=== PATIENT | female | born 1980 | race Caucasian/White ===

== ENCOUNTER 2022-09-18 19:38 | Emergency (ER) | payer OTHER ==
[2022-09-18] MEDS ORDERED: NS IV 1000 ML 1,000 ML IV STA (19:57)
[2022-09-18] MEDS ORDERED: KETOROLAC 30 MG/ML VIAL IVP STA (19:57)
--- NOTE | 2022-09-18 20:05 | ED Back Pain ---
General Chief Complaint: Back Problems Stated Complaint: LOWER RT BACK PAIN Source of Information: Patient History of Present Illness Date Seen by Provider: Sep 18, 2022 Time Seen by Provider: 19:41 Initial Comments 42-year-old female presenting with complaints of right flank and lower back pain x 4 days. She was seen in [place] at a urgent care and they diagnosed her with yeast infection and UTI. she was started on an antibiotic and states it is turquoise and purple but does not know what it is. From reviewing her external medicine history it appears that she was prescribed Macrobid. She presents tonight to the ED because several family members told her that it sounded like a kidney stone when she complained of her pain. She states that she has never had kidney stones that she is aware of but she has had urinary tract and kidney infections previously. She has tried doing lidocaine patches for the pain with little to no improvement. The pain has been constant and she rates it at 8 or 9. She has not tried anything [id number] because she says that it never works so she did not bother. Location: Other (right low back and flank) Timing/Duration: 4-5 Days Severity: Severe Pain/Injury Location: Back (right low back and flank) Method of Injury: Unknown Modifying Factors: Worse With Movement Associated Symptoms: No muscle spasms, No fever, No weakness, No numbness in legs/feet, No tingling in legs/feet, No sensory/motor loss; lower back pain; No loss of bladder control, No loss of bowel control Allergies and Home Medications Allergies Coded Allergies: amoxicillin (Verified Allergy, Severe, 09/18/22) Yeast infection and diarrhea morphine (Verified Allergy, Intermediate, Hives, 09/18/22) Patient Home Medication List Home Medication List Reviewed: Yes Cyclobenzaprine HCl (Cyclobenzaprine HCl) 10 Mg Tablet, 10 MG PO Q8H PRN for SPASMS Prescribed by: BERTRAND FRANCIS on 09/18/222150 Oxycodone HCl/Acetaminophen (Oxycodone-Acetaminophen 5-325) 5 Mg-325 Mg Tablet, 1 EACH PO Q6H PRN for PAIN-SEVERE (8-10) Prescribed by: BERTRAND FRANCIS on 09/18/222151 Review of Systems Constitutional: No chills, No fever EENTM: no symptoms reported Respiratory: no symptoms reported Cardiovascular: no symptoms reported Gastrointestinal: see HPI Genitourinary: see HPI Musculoskeletal: see HPI Skin: No change in color, No rash Psychiatric/Neurological: Denies Headache Past [id number] Hx Patient Social History Tobacco Use?: No Use of E-Cig and/or Vaping dev: No Substance use?: No Alcohol Use?: No Pt feels they are or have been: No Past Medical History Surgery/Hospitalization HX: recurrent UTI, Migraine Headaches, Hypothyroid, Fibromyalgia Surgeries: Yes Hysterectomy, Oophorectomy Physical Exam Vital Signs Vital Signs - First Documented 09/18/22 19:44 Temp 37.1 Pulse 87 Resp 18 B/P (MAP) 143/75 (97) Pulse Ox 98 O2 Delivery Room Air Capillary Refill : Height, Weight, BMI Height: '" Weight: lbs. oz. kg; BMI Method: General Appearance: No Apparent Distress, Obese HEENT: PERRL/EOMI, Pharynx Normal Neck: Full Range of Motion, Normal Inspection, Non Tender, Supple Cardiovascular: Regular Rate, Rhythm, Normal Peripheral Pulses Respiratory: Chest Non Tender, Lungs Clear, Normal Breath Sounds, No Accessory Muscle Use, No Respiratory Distress Gastrointestinal: Normal Bowel Sounds, No Pulsatile Mass, Non Tender, Soft Back: No CVA Tenderness, No Vertebral Tenderness, Other (tender to palpation right lower back and flank) Extremity: Normal Capillary Refill, Normal Inspection, No Pedal Edema Neurologic/Psychiatric: Alert, Oriented x3, cctv technician II-XII Norm as Tested Skin: Normal Color, Warm/Dry Progress/Results/Core Measures Results/Orders Lab Results Laboratory Tests Test 09/18/22 19:45 09/18/22 20:12 Range/Units Urine Color DARK YELLOW Urine Clarity CLEAR Urine pH 6.0 5-9 Urine Specific [place] 1.020 1.016-1.022 Urine Protein NEGATIVE NEGATIVE Urine Glucose (UA) NEGATIVE NEGATIVE Urine Ketones NEGATIVE NEGATIVE Urine Nitrite POSITIVE H NEGATIVE Urine Bilirubin NEGATIVE NEGATIVE Urine Urobilinogen 0.2 < = 1.0 MG/DL Urine Leukocyte Esterase TRACE H NEGATIVE Urine RBC (Auto) NEGATIVE NEGATIVE Urine RBC RARE /HPF Urine WBC 0-2 /HPF Urine Squamous Epithelial Cells 0-2 /HPF Urine Renal Epithelial Cells RARE /HPF Urine Crystals NONE /LPF Urine Bacteria TRACE /HPF Urine Casts NONE /LPF Urine Mucus SMALL H /LPF Urine Other RARE TRANS. EPITH /HPF Urine Culture Indicated NO White Blood Count 8.1 4.3-11.0 10^3/uL Red Blood Count 3.89 3.80-5.11 10^6/uL Hemoglobin 10.0 L 11.5-16.0 g/dL Hematocrit 32 L 35-52 % Mean Corpuscular Volume 81 80-99 fL Mean Corpuscular Hemoglobin 26 25-34 pg Mean Corpuscular Hemoglobin Concent 32 32-36 g/dL Red Cell Distribution Width 13.8 10.0-14.5 % Platelet Count 302 130-400 10^3/uL Mean Platelet Volume 9.3 9.0-12.2 fL Immature Granulocyte % (Auto) 0 % Neutrophils (%) (Auto) 65 42-75 % Lymphocytes (%) (Auto) 25 12-44 % Monocytes (%) (Auto) 7 0-12 % Eosinophils (%) (Auto) 2 0-10 % Basophils (%) (Auto) 1 0-10 % Neutrophils # (Auto) 5.2 1.8-7.8 10^3/uL Lymphocytes # (Auto) 2.0 1.0-4.0 10^3/uL Monocytes # (Auto) 0.6 0.0-1.0 10^3/uL Eosinophils # (Auto) 0.2 0.0-0.3 10^3/uL Basophils # (Auto) 0.0 0.0-0.1 10^3/uL Immature Granulocyte # (Auto) 0.0 0.0-0.1 10^3/uL Sodium Level 139 135-145 MMOL/L Potassium Level 4.0 3.6-5.0 MMOL/L Chloride Level 102 98-107 MMOL/L Carbon Dioxide Level 25 21-32 MMOL/L Anion Gap 12 5-14 MMOL/L Blood Urea Nitrogen 13 7-18 MG/DL Creatinine 1.11 0.60-1.30 MG/DL Estimat Glomerular Filtration Rate 64 BUN/Creatinine Ratio 12 Glucose Level 96 70-105 MG/DL Calcium Level 9.3 8.5-10.1 MG/DL Corrected Calcium 9.0 8.5-10.1 MG/DL Total Bilirubin 0.2 0.1-1.0 MG/DL Aspartate Amino Transf (AST/SGOT) 19 5-34 U/L Alanine Aminotransferase (ALT/SGPT) 19 0-55 U/L Alkaline Phosphatase 129 40-136 U/L Total Protein 7.0 6.4-8.2 GM/DL Albumin 4.4 3.2-4.5 GM/DL My Orders Orders - BERTRAND FRANCIS MD Ua Culture If Indicated (09/18/22 19:45) Urine Bedside (09/18/22 19:45) Comprehensive Metabolic Panel (09/18/22 19:57) Ed Iv/Invasive Line Start (09/18/22 19:57) Cbc With Automated Diff (09/18/22 19:57) Ns Iv 1000 Ml (Sodium Chloride 0.9%) (09/18/22 19:57) Ketorolac Injection (Toradol Injection) (09/18/22 19:57) Ct Abd/Pelvis Wo(Kidney Stone) (09/18/22 20:32) Rx-Oxycodone/Apap 5-325 Mg (Rx-Percocet (09/18/22 22:00) Rx-Cyclobenzaprine Tablet (Rx-Flexeril T (09/18/22 22:00) Medications Given in ED Current Medications Medications Dose Ordered Sig/Dylan Route Start Time Stop Time Status Last Admin Dose Admin Cyclobenzaprine HCl 10 mg TID PRN PO 09/18/22 22:00 09/18/22 22:06 DC 09/18/22 21:54 10 MG Oxycodone/ Acetaminophen 1 ea Q6H PRN PO 09/18/22 22:00 09/18/22 22:06 DC 09/18/22 21:54 1 EA Vital Signs/I&O 09/18/22 09/18/22 19:44 22:00 Temp 37.1 Pulse 87 75 Resp 18 16 B/P (MAP) 143/75 (97) 141/70 Pulse Ox 98 97 O2 Delivery Room Air Room Air 09/19/22 00:00 Intake Total 1000 ml Balance 1000 ml Progress Progress Note #1: Progress Note check urine and bedside , CBC, Chemistry, CT scan abdomen/pelvis wi thout contrast to evaluate for kidney stone, musculoskeletal injury, colitis, diverticulitis, appendicitis, abscess. Give NS 1 L IVF bolus for hydration. Toradol 30 mg IV for pain. Progress Note #2: Progress Note Bedside test was negative. Urinalysis had Pyridium present and showed positive for nitrates but otherwise was not showing signs of infection. This positive nitrates was likely due to the Pyridium. Her CBC and chemistry were stable without acute significant abnormality. CT scan did not show signs of kidney stones, colitis, diverticulitis, cholecystitis. She does have cholelithiasis but no indication of infection or inflammation. She had mild improvement in her pain with the Toradol shot. Counseled on follow-up and return precautions. Advised that while I cannot give her a specific diagnosis tonight that could rule out several more severe things that would require surgery or admission to the hospital. Encouraged to finish antibiotics that was prescribed on the . Follow-up with primary care provider when she gets back to [place] if symptoms or not improving with muscle relaxer and narcotic pain medicine for severe pain. Diagnostic Imaging Diagonstic Imaging: CT Plain Films/CT/US/NM/MRI: abdomen, pelvis Comments [facility] [address] [place], [place] NAME: RHEA GONZALEZ [facility] REC#: [id number] PT STATUS: REG ER : 1980 PHYSICIAN: BERTRAND FRANCIS MD ADMIT DATE: 09/18/22/ER FS Signed Date of Exam:09/18/22 CT ABD/PELVIS WO(KIDNEY STONE) PROCEDURE: CT urinary tract, rule out kidney stone. TECHNIQUE: Multiple contiguous axial images were obtained through the abdomen and pelvis without the use of intravenous contrast. Auto Exposure Controls were utilized during the CT exam to meet ALARA standards for radiation dose reduction. INDICATION: Right flank pain. FINDINGS: Lung bases are clear. The liver appears normal. The gallbladder appears to contain some stones. There is no wall thickening. Common duct is not dilated. There are postoperative changes from gastric bypass surgery. Pancreas is normal. Spleen is not enlarged. Kidneys and adrenals appear normal. There is a large amount of stool in the colon. There is no appendicitis. Small bowel is not dilated. Uterus is surgically absent. Urinary bladder is normal. There is no intraperitoneal free air or free fluid. IMPRESSION: Postop changes from gastric bypass. Cholecystolithiasis. Kidneys and ureters appear normal. Dictated by: Dictated on workstation # [id number] Dict: 09/18/222108 Trans: 09/18/222131 [facility] [id number] Interpreted by: MERLIN KENNEDY MD Electronically signed by: MERLIN KENNEDY MD 09/18/222131 Reviewed: Reviewed by Me Departure Impression Primary Impression: Right flank pain Disposition: 01 HOME, SELF-CARE Condition: Stable Departure-Patient Inst. Decision time for Depature: 21:49 Referrals: NO,LOCAL PHYSICIAN (PCP) Primary Care Physician Patient Instructions: Flank Pain ED Add. Discharge Instructions: Stay well hydrated and drink plenty of water. Finish out your course of antibiotics for the urine infection. Try the percocet for severe pain and cyclobenzaprine for muscle relaxer. Check with your primary care provider if pain persists or worsens this next week All discharge instructions reviewed with patient and/or family. Voiced understanding. Scripts Oxycodone HCl/Acetaminophen (Oxycodone-Acetaminophen 5-325) 5 Mg-325 Mg Tablet 1 EACH PO Q6H PRN for PAIN-SEVERE (8-10) MDD 6 for 3 Days, #12 TAB 0 Refills Prov: BERTRAND FRANCIS MD 09/18/22 Cyclobenzaprine HCl (Cyclobenzaprine HCl) 10 Mg Tablet 10 MG PO Q8H PRN for SPASMS for 7 Days, #21 TAB 0 Refills Prov: BERTRAND FRANCIS MD 09/18/22 BERTRAND FRANCIS MD Sep 18, 2022 20:05
[2022-09-18 20:22] LABS: BASOPHILS % (AUTO) 1 % (0-10); EOSINOPHILS # (AUTO) 0.2 10^3/uL (0.0-0.3); EOSINOPHILS % (AUTO) 2 % (0-10); HEMATOCRIT 32 % (35-52); LYMPHOCYTES % (AUTO) 25 % (12-44); MEAN CORPUSCULAR HEMOGLOBIN 26 pg (25-34); MEAN CORPUSCULAR HGB CONC 32 g/dL (32-36); MEAN CORPUSCULAR VOLUME 81 fL (80-99); MEAN PLATELET VOLUME 9.3 fL (9.0-12.2); MONOCYTES # (AUTO) 0.6 10^3/uL (0.0-1.0); MONOCYTES % (AUTO) 7 % (0-12); NEUTROPHILS # (AUTO) 5.2 10^3/uL (1.8-7.8); NEUTROPHILS % (AUTO) 65 % (42-75); PLATELET COUNT 302 10^3/uL (130-400); WHITE BLOOD COUNT 8.1 10^3/uL (4.3-11.0)
[2022-09-18 20:25] LABS: BILIRUBIN,URINE NEGATIVE (NEGATIVE); CLARITY,URINE CLEAR; GLUCOSE, URINE (UA) NEGATIVE (NEGATIVE); KETONES,URINE NEGATIVE (NEGATIVE); LEUKOCYTE ESTERASE ,URINE TRACE (NEGATIVE); NITRITE,URINE POSITIVE (NEGATIVE); PROTEIN,URINE NEGATIVE (NEGATIVE)
[2022-09-18 20:37] LABS: BACTERIA,URINE TRACE /HPF; RBC,URINE RARE /HPF; SQUAMOUS EPITHELIAL CELL,UR 0-2 /HPF; WBC,URINE 0-2 /HPF
[2022-09-18 20:38] LABS: RENAL EPITHELIAL CELLS,URINE RARE /HPF
[2022-09-18 20:39] LABS: COLOR,URINE DARK YELLOW; URINE OTHER RARE TRANS. EPITH /HPF
[2022-09-18 21:04] LABS: ALBUMIN 4.4 GM/DL (3.2-4.5); BILIRUBIN,TOTAL 0.2 MG/DL (0.1-1.0); CALCIUM 9.3 MG/DL (8.5-10.1); CREATININE SERUM 1.11 MG/DL (0.60-1.30)
--- NOTE | 2022-09-18 21:21 | Diagnostic Imaging Report ---
PROCEDURE: CT urinary tract, rule out kidney stone. TECHNIQUE: Multiple contiguous axial images were obtained through the abdomen and pelvis without the use of intravenous contrast. Auto Exposure Controls were utilized during the CT exam to meet ALARA standards for radiation dose reduction. INDICATION: Right flank pain. FINDINGS: Lung bases are clear. The liver appears normal. The gallbladder appears to contain some stones. There is no wall thickening. Common duct is not dilated. There are postoperative changes from gastric bypass surgery. Pancreas is normal. Spleen is not enlarged. Kidneys and adrenals appear normal. There is a large amount of stool in the colon. There is no appendicitis. Small bowel is not dilated. Uterus is surgically absent. Urinary bladder is normal. There is no intraperitoneal free air or free fluid. IMPRESSION: Postop changes from gastric bypass. Cholecystolithiasis. Kidneys and ureters appear normal. Dictated by: Dictated on workstation # [id number]
[2022-09-18] MEDS ORDERED: CYCL10TA25 PO (21:51)
[2022-09-18] MEDS ORDERED: OXYC1TAB11 PO (21:51)
[2022-09-18 22:00] VITALS: BP 141/70
[2022-09-18] MEDS ORDERED: RX-OXYCODONE/APAP 5-325 MG #4 TAB PK PO PRN (22:00)
[2022-09-18] MEDS ORDERED: RX-CYCLOBENZAPRINE 10 MG (FLEXERIL) TAB PPK#3 PO PRN (22:00)
== END 2022-09-18 22:03 | disposition home or self-care (01) ==
LOC: ER FS 19:43
DX: K80.20 Calculus of gallbladder without cholecystitis without obstruction (principal); N39.0 Urinary tract infection, site not specified; E66.9 Obesity, unspecified; Z88.5 Allergy status to narcotic agent; Z32.02 Encounter for pregnancy test, result negative; Z28.310 Unvaccinated for COVID-19
CPT/HCPCS: 36415; 74176; 80053; 81000; 84703; 85025; 87088